=== PATIENT | female | born 1995 | race Caucasian/White ===

== ENCOUNTER 2023-12-24 10:37 | Outpatient (CLI) | payer MEDICAID | END 2023-12-24 23:59 | disposition home or self-care (01) | LOC: RAD 10:37 | PROVIDERS: ATTEND Nurse Practitioner Obstetrics & Gynecology | DX: Z53.9 Procedure and treatment not carried out, unspecified reason (principal) ==

== ENCOUNTER 2024-01-02 08:38 | Outpatient (CLI) | payer MEDICAID | END 2024-01-02 23:59 | disposition home or self-care (01) | LOC: RAD 08:38 | PROVIDERS: ATTEND Nurse Practitioner Obstetrics & Gynecology | DX: O99.212 Obesity complicating pregnancy, second trimester (principal); Z3A.18 18 weeks gestation of pregnancy | CPT/HCPCS: 76815 ==